=== PATIENT | female | born 1990 | race Caucasian/White ===

== ENCOUNTER 2017-02-04 13:24 | Emergency (ER) | payer MEDICAID ==
[~2017-02-04] VITALS: Ht 165.1 cm; Wt 90.0 kg
[~2017-02-04 13:24] MED LIST: CLIN150 PO
[2017-02-04 13:25] VITALS: BP 133/73; PULSE 17; PULSE 79; RESP 15; TEMP 98.1; O2SAT 98
[2017-02-04 13:50] VITALS: BP 128/68; PULSE 76; RESP 16; O2SAT 100
--- NOTE | 2017-02-04 14:07 | PD ---
HPI Chief Complaint: Abdominal Pain Time Seen by Provider: 13:41 Travel History International Travel<30 days: No Contact w/Intl Traveler<30days: No Traveled to known affect area: No History of Present Illness HPI The patient was seen and examined in the presence of the nurse. This patient reports that she is approximate 5-6 weeks' . She developed pelvic cramping 3 days ago. No bleeding or fluid discharge. No fever. Symptoms severity is mild to moderate. No alleviating factors. 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, OPEN HEART SURGERY ) Diminished Hearing: No Hiatal Hernia: No Immunizations Current: Yes Renal Failure: No Influenza Vaccination: No ?: : 3 Para: 3 Miscarriage: 0 : 0 Past Surgical History Cardiac Surgery: Yes (arotic valve at age 7 months) Other Surgery: Yes ("OPEN HEART AT 8 MOS AND STENT SURGERY AT 14 YRS") Social History Alcohol Use: No Tobacco Use: No Substance Use: No Allergies-Medications (Allergen,Severity, Reaction): Coded Allergies: Amoxicillin (Verified Allergy, Severe, RASH, 02/04/17) Penicillin (Verified Allergy, Severe, "THROAT CLOSES", 02/04/17) Shellfish (Verified Allergy, Severe, Anaphylaxis, 02/04/17) Tramadol (Verified Allergy, Severe, RASH, 02/04/17) Reported Meds & Prescriptions Reported Meds & Active Scripts Active No Active Prescriptions or Reported Medications Review of Systems General / Constitutional: No: Fever Eyes: No: Visual changes HENT: No: Headaches Cardiovascular: No: Chest Pain or Discomfort Respiratory: No: Shortness of Breath Gastrointestinal: No: Abdominal Pain Genitourinary: Positive: Pelvic Pain, No: Dysuria Musculoskeletal: No: Pain Skin: No Rash Neurologic: No: Weakness Psychiatric: No: Depression Endocrine: No: Polydipsia Hematologic/Lymphatic: No: Easy Bruising Physical Exam Narrative GENERAL: Well-nourished, well-developed patient in no apparent distress. SKIN: Warm and dry. HEAD: Atraumatic. Normocephalic. EYES: Pupils equal and round. No scleral icterus. No injection or drainage. ENT: No nasal bleeding or discharge. Mucous membranes pink and moist. NECK: Trachea midline. No JVD. CARDIOVASCULAR: Regular rate and rhythm. No murmur appreciated. RESPIRATORY: No accessory muscle use. Clear to auscultation. Breath sounds equal bilaterally. GASTROINTESTINAL: Abdomen soft, non-tender, nondistended. Hepatic and splenic margins not palpable. MUSCULOSKELETAL: No obvious deformities. No clubbing. No cyanosis. No edema. NEUROLOGICAL: Awake and alert. No obvious cranial nerve deficits. Motor grossly within normal limits. Normal speech. PSYCHIATRIC: Appropriate mood and affect; insight and judgment normal. Data Data Last Documented VS Vital Signs Date Time Temp Pulse Resp B/P Pulse Ox O2 Delivery O2 Flow Rate FiO2 02/04/17 13:50 76 16 128/68 100 Room Air 02/04/17 13:25 98.1 Orders Beta Hcg (Quant/Titer) (02/04/17 14:00) Urinalysis - C+S If Indicated (02/04/17 14:00) Labs Laboratory Tests Test 02/04/17 14:05 Urine Color YELLOW Urine Turbidity CLEAR Urine pH 7.5 Urine Specific [place] 1.011 Urine Protein NEG mg/dL Urine Glucose (UA) NEG mg/dL Urine Ketones NEG mg/dL Urine Occult Blood NEG Urine Nitrite NEG Urine Bilirubin NEG Urine Urobilinogen LESS THAN 2.0 MG/DL Urine Leukocyte Esterase NEG Urine RBC LESS THAN 1 /hpf Urine WBC LESS THAN 1 /hpf Urine Squamous Epithelial 4 /hpf Cells Microscopic Urinalysis Comment CULT NOT INDICATED Human Chorionic Gonadotropin, 4732 MIU/ML Quant MDM Medical Decision Making Medical Screen Exam Complete: Yes Emergency Medical Condition: Yes Medical Record Reviewed: Yes Differential Diagnosis Ectopic , miscarriage, threatened Narrative Course I have reviewed the patient's electronic medical record. Patient has had vaginal delivery here before. 3 prior pregnancies, none with any major problem Urinalysis is negative Beta hCG is 4700 I did a bedside transabdominal ultrasound. I'm not able to definitively identify an intrauterine fetus. Therefore I ordered a formal radiology transvaginal ultrasound to rule out ectopic I explained the importance of this to the patient On reevaluation the patient she is frustrated with the delay and is going to sign out AGAINST MEDICAL ADVICE. I advised her to wait and get the ultrasound but she is declining. I advised her to return if she changes her mind or worsens. Diagnosis Primary Impression: Pelvic pain affecting in first trimester, antepartum Scripts No Active Prescriptions or Reported Meds Disposition: 07 AGAINST MEDICAL ADVICE Gerry Alcaraz MD Feb 04, 2017 14:07
[2017-02-04 14:20] LABS: BLOOD, URINE NEG (NEG); COMMENT (UR) CULT NOT INDICATED; CULTURE IF INDICATED CULT NOT INDICATED; GLUCOSE,URINE NEG (NEG); KETONE, URINE NEG (NEG); NITRITE,URINE NEG (NEG); PH, URINE 7.5 (5.0-8.5); SQUAMOUS EPITHELIAL CELL URINE 4 /hpf (0-5); URINE COLOR YELLOW (YELLW/STRAW)
[2017-02-04 14:54] LABS: BETA HCG QUANT 4732 MIU/ML (0-5)
== END 2017-02-04 17:30 | disposition left against medical advice (07) ==
LOC: NEPE 13:24
DX: O26.891 Other specified pregnancy related conditions, first trimester (principal); R10.2 Pelvic and perineal pain; Z3A.01 Less than 8 weeks gestation of pregnancy
CPT/HCPCS: 81001; 84702; 99284

== ENCOUNTER 2017-06-12 19:02 | Emergency (ER) | payer MEDICAID ==
--- NOTE | 2017-06-12 19:54 | PD ---
HPI Chief Complaint Discharge and cramping Date Seen: Jun 12, 2017 Time Seen: 19:50 Travel History International Travel<30 Days: No Contact w/Intl Traveler<30Days: No Known Affected Area: No History of Present Illness HPI 27-year-old who is at 24 weeks gestation comes in because of some white discharge that she noticed today and lower abdominal cramping. Patient states that she's had abdominal pain off and on for the past 2-3 months located in the midsection of the belly but this seems to be more crampy pain in the lower abdomen it occurs off and on every 20-30 minutes, with occasional back pain. Patient had intercourse last night and had some white discharge and mucus past this morning. Patient has normal movement and denies vaginal bleeding denies rupture membranes. Patient sees Luz Coleman for her care and denies any complications. She's had 3 prior vaginal deliveries all of which occurred at term Para: 3 : 4 History Past Medical History Narrative Medical Aortic stenosis that did not require surgery but patient had a dilation of her aortic valve when she was 13 years old. Continued cardiology follow-up with benign, no issues with prior deliveries. Obstetric History Obstetric History Spontaneous vaginal delivery 3 Family History Family History: Negative Social History Alcohol Use: No Tobacco Use: No Substance Abuse: No Allergies-Medications (Allergen,Severity, Reaction): Coded Allergies: Amoxicillin (Verified Allergy, Severe, RASH, 02/04/17) Penicillin (Verified Allergy, Severe, "THROAT CLOSES", 02/04/17) Shellfish (Verified Allergy, Severe, Anaphylaxis, 02/04/17) Tramadol (Verified Allergy, Severe, RASH, 02/04/17) Home Meds No Active Prescriptions or Reported Meds Review of Systems Except as stated in HPI: all other systems reviewed are Neg Physical Exam Narrative GENERAL: Well-nourished, well-developed patient. SKIN: Warm and dry. HEAD: Normocephalic and atraumatic. EYES: No scleral icterus. No injection or drainage. ENT: No nasal drainage noted. Mucous membranes pink. Airway patent. NECK: Supple, trachea midline. No JVD. CARDIOVASCULAR: Regular rate and rhythm without murmurs, gallops, or rubs. RESPIRATORY: Breath sounds equal bilaterally. No accessory muscle use. ABDOMEN/GI: Abdomen soft, non-tender, bowel sounds present, no rebound, no guarding Gravid to [-24] weeks size Fundal Height: [-] GENITOURINARY: External Genitalia: intact and normal in appearance BUS glands: [Normal-] Cervix: [-] Sterile speculum examination was performed no discharge is seen and cervix is closed. Dilatation: [-] Effacement: [-] Station: [-] Presentation: [-] Membranes: [intact or ruptured] Uterine Contractions: [None seen-] FHT's: Category: [-1] Baseline: [140-] Reactive: [-Moderate] Variability: [-Moderate] Decels: [-Absent] EXTREMITIES: No cyanosis or edema. BACK: Nontender without obvious deformity. No CVA tenderness. NEUROLOGICAL: Awake and alert. Motor and sensory grossly within normal limits. Five out of 5 muscle strength in all muscle groups. Normal speech. Data Data Vital Signs Reviewed: Yes Orders Vital Signs (Adult) .ON ADMISSION (06/12/17 19:49) ^ Labor Status (06/12/17 19:49) Urinalysis - C+S If Indicated (06/12/17 19:49) Diet Liquid (06/13/17 Breakfast) Labs Laboratory Tests Test 06/12/17 19:45 Urine Color LIGHT-YELLOW Urine Turbidity CLEAR Urine pH 6.0 Urine Specific [place] 1.002 Urine Protein NEG mg/dL Urine Glucose (UA) NEG mg/dL Urine Ketones NEG mg/dL Urine Occult Blood NEG Urine Nitrite NEG Urine Bilirubin NEG Urine Urobilinogen LESS THAN 2.0 MG/DL Urine Leukocyte Esterase MOD Urine RBC 4 /hpf Urine WBC 2 /hpf Urine Squamous Epithelial 4 /hpf Cells Urine Amorphous Sediment RARE Urine Bacteria RARE /hpf Microscopic Urinalysis Comment CULT NOT INDICATED MDM Medical Record Reviewed: Yes Plan 27yo G43 at 24 weeks with vaginal discharge No signs of labor and no contractions noted Precautions given to patient to return to hospital for worsening symptoms as FFN could not be performed Diagnosis Diagnosis: Primary Impression: 24 weeks gestation of Additional Impression: Vaginal discharge during in second trimester Disposition: DISCHARGE HOME Scripts No Active Prescriptions or Reported Meds Italia Boateng MD Jun 12, 2017 19:54
[2017-06-12 20:43] LABS: BACTERIA, URINE RARE /hpf; BLOOD, URINE NEG (NEG); COMMENT (UR) CULT NOT INDICATED; CULTURE IF INDICATED CULT NOT INDICATED; GLUCOSE,URINE NEG (NEG); KETONE, URINE NEG (NEG); NITRITE,URINE NEG (NEG); SQUAMOUS EPITHELIAL CELL URINE 4 /hpf (0-5); URINE COLOR LIGHT-YELLOW (YELLW/STRAW)
== END 2017-06-12 21:07 | disposition home or self-care (01) ==
LOC: HOBED 19:02
DX: O26.899 Other specified pregnancy related conditions, unspecified trimester (principal); N89.8 Other specified noninflammatory disorders of vagina; Z3A.24 24 weeks gestation of pregnancy; Z88.0 Allergy status to penicillin; Z88.5 Allergy status to narcotic agent
CPT/HCPCS: 81001; 99283

== ENCOUNTER 2017-08-10 12:05 | Emergency (ER) | payer MEDICAID ==
--- NOTE | 2017-08-10 14:19 | PD ---
HPI Chief Complaint vomiting and lower abd pressure Travel History International Travel<30 Days: No Contact w/Intl Traveler<30Days: No History of Present Illness HPI 27 yo at 32/3 weeks gestation presented to OB triage with complaints of vomiting x2, last vomit episode this morning contained blood streaks and nausea. Pt also complained of Left lower abd pain radiating to back. Denies vaginal bleeding and contractions. Endorse LOF yesterday after vomiting, LOF has not continued. Pt also endorsed movement. Pt stated she was able to tolerate po (yesterday after 1st vomiting episode ate 2 burritos and ate donut this morning after 2nd vomiting episode), currently not nauseous. 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, no heart issues since then, not on any medications Family History Narrative Family History -grandfather with congenital heart condition Social History Alcohol Use: No Tobacco Use: No Substance Abuse: No Allergies-Medications (Allergen,Severity, Reaction): Coded Allergies: amoxicillin (Unverified Allergy, Severe, RASH, 07/03/17) penicillin G (Unverified Allergy, Severe, "THROAT CLOSES", 07/03/17) shellfish derived (Unverified Allergy, Severe, Anaphylaxis, 07/03/17) tramadol (Unverified Allergy, Severe, RASH, 07/03/17) Home Meds No Active Prescriptions or Reported Meds Review of Systems Except as stated in HPI: all other systems reviewed are Neg Physical Exam Narrative GENERAL: Well-nourished, well-developed patient. SKIN: Warm and dry. HEAD: Normocephalic and atraumatic. EYES: No scleral icterus. No injection or drainage. ENT: No nasal drainage noted. Mucous membranes pink. Airway patent. NECK: Supple, trachea midline. No JVD. CARDIOVASCULAR: Regular rate and rhythm without murmurs, gallops, or rubs. RESPIRATORY: Breath sounds equal bilaterally. No accessory muscle use. BREASTS: Bilateral exam showed no masses , no retractions, no nipple discharge. ABDOMEN/GI: Abdomen soft, non-tender, bowel sounds present, no rebound, no guarding Gravid to 32/3 weeks size GENITOURINARY: External Genitalia: intact and normal in appearance Cervix: posterior Dilatation: Finger tip Effacement: 10% Station: -2 Membranes:intact Uterine Contractions: none FHT's: Category: 1 Baseline: 150 Reactive: positive Variability: moderate Decels: none EXTREMITIES: No cyanosis or edema. BACK: Nontender without obvious deformity. No CVA tenderness. NEUROLOGICAL: Awake and alert. Motor and sensory grossly within normal limits. Five out of 5 muscle strength in all muscle groups. Normal speech. Data Data Vital Signs Reviewed: Yes [facility] Medical Record Reviewed: Yes Plan 27 yo at 32/3 weeks gestation presented to OB triage with complaints of vomiting x2 and pressure. 1. IUP at 32/3 - Continue routine OB care -encourage oral hydration -amnisure negative -Cervix finger tip on vaginal exam, not in premature labor -FHT, cat 1 -NST, reassuring 2. N/V - Pt stated nausea resolved, no vomiting since this -Vital signs WNL - trace ketones on urine -Anticipate discharge home if pt able to complete po challenge -virginie Bearden Diagnosis Diagnosis: Primary Impression: 32 weeks gestation of Additional Impression: Nausea and vomiting during Disposition: 01 DISCHARGE HOME Condition: Stable Scripts No Active Prescriptions or Reported Meds Patient Instructions: General Instructions, Labor (ED), Nausea and Vomiting in (ED) Raciel Reich MD R1 Aug 10, 2017 14:19
== END 2017-08-10 14:53 | disposition home or self-care (01) ==
LOC: HOBED 12:05
DX: O26.893 Other specified pregnancy related conditions, third trimester (principal); R11.2 Nausea with vomiting, unspecified; Z3A.32 32 weeks gestation of pregnancy
CPT/HCPCS: 59025; 84112

== ENCOUNTER 2017-09-09 10:22 | Emergency (ER) | payer MEDICAID ==
--- NOTE | 2017-09-09 12:09 | PD ---
HPI Chief Complaint Swelling, lower abdominal, hip and back pain Date Seen: Sep 09, 2017 Time Seen: 12:03 Travel History International Travel<30 Days: No Contact w/Intl Traveler<30Days: No Known Affected Area: No History of Present Illness HPI 27-year-old 4 para 3 at 36+ weeks gestation who comes today with multiple vague complaints. These include swelling of her feet, constant hip and lower abdominal pain for several weeks. She denies bleeding, leakage of fluid but does report decreased movement. History Past Medical History Medical History: Denies Significant Hx Obstetric History Obstetric History 3 prior vaginal deliveries She receives care at [facility] and denies complications with this . Past Surgical History Narrative Surgical Cardiac surgery as an infant Family History Family History: Negative Social History Alcohol Use: No Tobacco Use: No Substance Abuse: No Allergies-Medications (Allergen,Severity, Reaction): Coded Allergies: amoxicillin (Unverified Allergy, Severe, RASH, 07/03/17) penicillin G (Unverified Allergy, Severe, "THROAT CLOSES", 07/03/17) shellfish derived (Unverified Allergy, Severe, Anaphylaxis, 07/03/17) tramadol (Unverified Allergy, Severe, RASH, 07/03/17) Home Meds No Active Prescriptions or Reported Meds Review of Systems Except as stated in HPI: all other systems reviewed are Neg Physical Exam Narrative GENERAL: Well-nourished, well-developed patient. SKIN: Warm and dry. HEAD: Normocephalic and atraumatic. EYES: No scleral icterus. No injection or drainage. ENT: No nasal drainage noted. Mucous membranes pink. Airway patent. NECK: Supple, trachea midline. No JVD. CARDIOVASCULAR: Regular rate and rhythm without murmurs, gallops, or rubs. RESPIRATORY: Breath sounds equal bilaterally. No accessory muscle use. BREASTS: Bilateral exam showed no masses , no retractions, no nipple discharge. ABDOMEN/GI: Abdomen soft, non-tender, bowel sounds present, no rebound, no guarding Gravid to [-] weeks size Fundal Height: [-] GENITOURINARY: External Genitalia: intact and normal in appearance BUS glands: [-] Cervix: [-] Dilatation: [-1] Effacement: [50-] Station: [--3] Presentation: [Vertex-] Membranes: [intact Uterine Contractions: [-No] FHT's: Category: [-1] Baseline: [-] Reactive: [Yes-] Variability: [-] Decels: [-] EXTREMITIES: No cyanosis or edema. BACK: Nontender without obvious deformity. No CVA tenderness. NEUROLOGICAL: Awake and alert. Motor and sensory grossly within normal limits. Five out of 5 muscle strength in all muscle groups. Normal speech. MDM Medical Record Reviewed: Yes Diagnosis Diagnosis: Primary Impression: 36 weeks gestation of Additional Impression: Labor, false Disposition: 01 DISCHARGE HOME Condition: Good Scripts No Active Prescriptions or Reported Meds Franklin Patino MD Sep 09, 2017 12:09
== END 2017-09-09 12:17 | disposition home or self-care (01) ==
LOC: HOBED 10:22
DX: O47.03 False labor before 37 completed weeks of gestation, third trimester (principal); M79.89 Other specified soft tissue disorders; M25.559 Pain in unspecified hip; R10.30 Lower abdominal pain, unspecified; Z3A.36 36 weeks gestation of pregnancy; Z88.0 Allergy status to penicillin; Z88.5 Allergy status to narcotic agent
CPT/HCPCS: 59025

== ENCOUNTER 2017-09-25 19:34 | Emergency (ER) | payer MEDICAID ==
--- NOTE | 2017-09-25 20:21 | PD ---
HPI Chief Complaint Contractions Date Seen: Sep 25, 2017 Time Seen: 20:18 Travel History International Travel<30 Days: No Contact w/Intl Traveler<30Days: No Known Affected Area: No History of Present Illness HPI 27-year-old who is at 39 weeks comes in today complaining of contractions which she states has been going on all day. Patient was seen this morning at Luz Coleman's office with an examination which she states was 3-4 cm. She is group B strep negative and denies any antepartum complications. Patient has had 3 prior spontaneous vaginal deliveries the largest of which was 9-1/2 pounds. Patient denies vaginal bleeding and she's having good movement. Patient states the contractions are 5-10 minutes apart Weeks Gestation: 39 Para: 3 : 4 History Past Medical History Narrative Medical Abnormal aortic valve requiring surgery and valvular replacement when she was a young child Obstetric History Obstetric History Spontaneous vaginal delivery 3 no history of complications Past Surgical History Narrative Surgical See previous history above Family History Family History: Negative Social History Alcohol Use: No Tobacco Use: No Substance Abuse: No Allergies-Medications (Allergen,Severity, Reaction): Coded Allergies: amoxicillin (Unverified Allergy, Severe, RASH, 07/03/17) penicillin G (Unverified Allergy, Severe, "THROAT CLOSES", 07/03/17) shellfish derived (Unverified Allergy, Severe, Anaphylaxis, 07/03/17) tramadol (Unverified Allergy, Severe, RASH, 07/03/17) Home Meds No Active Prescriptions or Reported Meds Review of Systems Except as stated in HPI: all other systems reviewed are Neg Physical Exam Narrative GENERAL: Well-nourished, well-developed patient. SKIN: Warm and dry. HEAD: Normocephalic and atraumatic. EYES: No scleral icterus. No injection or drainage. ENT: No nasal drainage noted. Mucous membranes pink. Airway patent. NECK: Supple, trachea midline. No JVD. CARDIOVASCULAR: Regular rate and rhythm without murmurs, gallops, or rubs. RESPIRATORY: Breath sounds equal bilaterally. No accessory muscle use. ABDOMEN/GI: Abdomen soft, non-tender, bowel sounds present, no rebound, no guarding Gravid to [-39] weeks size Fundal Height: [-] GENITOURINARY: External Genitalia: intact and normal in appearance BUS glands: [Normal-] Cervix: [-Posterior] Dilatation: [3 cm-] Effacement: [-50] Station: [-High] Presentation: [-Vertex and ballotable] Membranes: [intact ] Uterine Contractions: [-Irregular every 10 minutes] FHT's: Category: [1-] Baseline: [150-] Reactive: [-Moderate] Variability: [-Moderate] Decels: [Absent-] EXTREMITIES: No cyanosis or edema. BACK: Nontender without obvious deformity. No CVA tenderness. NEUROLOGICAL: Awake and alert. Motor and sensory grossly within normal limits. Five out of 5 muscle strength in all muscle groups. Normal speech. Data Data Vital Signs Reviewed: Yes Group B Strep: Negative MDM Medical Record Reviewed: Yes Plan 27yo at [id number] here with irregular contractions. No cervical change from exam today and no change after observation here. Discussed labor precautions to return for worsening contractions, vaginal bleeding, or rupture of membranes. Diagnosis Diagnosis: Primary Impression: 39 weeks gestation of Additional Impression: False labor after 37 weeks of gestation without delivery Disposition: 01 DISCHARGE HOME Scripts No Active Prescriptions or Reported Meds Italia Boateng MD Sep 25, 2017 20:21
== END 2017-09-25 21:55 | disposition home or self-care (01) ==
LOC: HOBED 19:34
DX: O47.1 False labor at or after 37 completed weeks of gestation (principal); Z3A.39 39 weeks gestation of pregnancy; Z88.0 Allergy status to penicillin; Z88.5 Allergy status to narcotic agent
CPT/HCPCS: 59025

== ENCOUNTER 2017-09-28 19:03 | Emergency (ER) | payer MEDICAID ==
[~2017-09-28] VITALS: Ht 165.1 cm; Wt 94.8 kg
--- NOTE | 2017-09-28 20:17 | PD ---
HPI Chief Complaint Lower abdominal cramping Date Seen: Sep 28, 2017 Time Seen: 20:13 Travel History International Travel<30 Days: No Contact w/Intl Traveler<30Days: No Known Affected Area: No History of Present Illness HPI 27-year-old 4 para 3 at 39+ weeks gestation who presents with lower abdominal discomfort and possible contractions. She denies bleeding but thought she might be leaking some fluid. She was seen 48 hours ago and was found to be 3 cm dilated. History Past Medical History Narrative Medical History of aortic valve replacement as an Obstetric History Obstetric History 3 vaginal deliveries Uncomplicated course with this Past Surgical History Narrative Surgical Aortic valve replacement Family History Family History: Negative Social History Alcohol Use: No Tobacco Use: No Substance Abuse: No Allergies-Medications (Allergen,Severity, Reaction): Coded Allergies: amoxicillin (Unverified Allergy, Severe, RASH, 09/28/17) penicillin G (Unverified Allergy, Severe, "THROAT CLOSES", 09/28/17) shellfish derived (Unverified Allergy, Severe, Anaphylaxis, 09/28/17) tramadol (Unverified Allergy, Severe, RASH, 09/28/17) Home Meds No Active Prescriptions or Reported Meds Review of Systems Except as stated in HPI: all other systems reviewed are Neg Physical Exam Narrative GENERAL: Well-nourished, well-developed patient. SKIN: Warm and dry. HEAD: Normocephalic and atraumatic. EYES: No scleral icterus. No injection or drainage. ENT: No nasal drainage noted. Mucous membranes pink. Airway patent. NECK: Supple, trachea midline. No JVD. CARDIOVASCULAR: Regular rate and rhythm without murmurs, gallops, or rubs. RESPIRATORY: Breath sounds equal bilaterally. No accessory muscle use. BREASTS: Bilateral exam showed no masses , no retractions, no nipple discharge. ABDOMEN/GI: Abdomen soft, non-tender, bowel sounds present, no rebound, no guarding Gravid to [-] weeks size Fundal Height: [-] GENITOURINARY: External Genitalia: intact and normal in appearance BUS glands: [-] Cervix: [-] Dilatation: [3-] Effacement: [-50] Station: [--3] Presentation: [Vertex-] Membranes: [intact ] Uterine Contractions: [-Mild irregular] FHT's: Category: [1-] Baseline: [-] Reactive: [-Yes] Variability: [-] Decels: [-] EXTREMITIES: No cyanosis or edema. BACK: Nontender without obvious deformity. No CVA tenderness. NEUROLOGICAL: Awake and alert. Motor and sensory grossly within normal limits. Five out of 5 muscle strength in all muscle groups. Normal speech. Data Data Vital Signs Reviewed: Yes Group B Strep: Negative MDM Medical Record Reviewed: Yes Narrative Course / MDM Assessment: 39 week multipara not in labor Plan: Labor precautions were reviewed with the patient. She'll follow up as needed. Diagnosis Diagnosis: Primary Impression: Labor, false Additional Impression: 39 weeks gestation of Disposition: 01 DISCHARGE HOME Condition: Good Scripts No Active Prescriptions or Reported Meds Franklin Patino MD Sep 28, 2017 20:17
== END 2017-09-28 20:25 | disposition home or self-care (01) ==
LOC: HOBED 19:03
DX: O47.1 False labor at or after 37 completed weeks of gestation (principal); Z3A.39 39 weeks gestation of pregnancy; Z88.0 Allergy status to penicillin; Z88.5 Allergy status to narcotic agent
CPT/HCPCS: 84112; 99284

== ENCOUNTER 2017-09-30 13:54 | Inpatient (IN) | payer MEDICAID ==
[~2017-09-30] VITALS: Ht 165.1 cm; Wt 95.0 kg
[2017-09-30] VITALS (61 sets, daily range): BP systolic 94–147; BP diastolic 45–76; PULSE 56–131; RESP 16–18; TEMP 98.2–98.9
[2017-09-30] MEDS ORDERED: LACTATED RINGER'S 1000 ML INJ 1,000 ML IV PRN (14:09)
[2017-09-30] MEDS ORDERED: CITRIC ACID-SODIUM CITRATE LIQ 30 ML UDC PO SCH (14:15)
[2017-09-30] MEDS ORDERED: LIDOCAINE HCL 1% 50 ML VIAL INFIL PRN (14:15)
[2017-09-30] MEDS ORDERED: LIDOCAINE HCL 1% 50 ML VIAL I-DERMAL PRN (14:15)
[2017-09-30] MEDS ORDERED: MINERAL OIL 10 ML VIAL TOPICAL PRN (14:15)
[2017-09-30] MEDS ORDERED: OXYTOCIN 30 UNITS-500ML PREMIX 500 ML IV ONE (14:15)
[2017-09-30] MEDS ORDERED: SODIUM CHLORID 0.9% 500 ML INJ 500 ML IV PRN (14:15)
--- NOTE | 2017-09-30 14:19 | HHI.HP ---
History & Physical H&P HPI Chief Complaint Contractions Date Seen: Sep 30, 2017 Time Seen: 14:15 Travel History International Travel<30 Days: No Contact w/Intl Traveler<30Days: No Known Affected Area: No History of Present Illness HPI 27-year-old 4 para 3 at 39-5/7 weeks' gestation who presents with increased contraction activity. She denies leakage of fluid or bleeding. History (Limited) History Past Medical History Narrative Medical Anxiety History of aortic valve repair/replacement Obstetric History Obstetric History 3 prior uncomplicated vaginal deliveries care with Luz Jared which has been uncomplicated. Past Surgical History Narrative Surgical Porcine aortic valve replacement at 7 months of age Valvuloplasty Family History Family History: Negative Social History Alcohol Use: No Tobacco Use: No Substance Abuse: No Allergies-Medications Allergies-Medications (Allergen,Severity, Reaction): Coded Allergies: amoxicillin (Unverified Allergy, Severe, RASH, 09/28/17) penicillin G (Unverified Allergy, Severe, "THROAT CLOSES", 09/28/17) shellfish derived (Unverified Allergy, Severe, Anaphylaxis, 09/28/17) tramadol (Unverified Allergy, Severe, RASH, 09/28/17) Home Meds No Active Prescriptions or Reported Meds ROS Review of Systems Except as stated in HPI: all other systems reviewed are Neg Physical Exam Physical Exam Narrative GENERAL: Well-nourished, well-developed patient. SKIN: Warm and dry. HEAD: Normocephalic and atraumatic. EYES: No scleral icterus. No injection or drainage. ENT: No nasal drainage noted. Mucous membranes pink. Airway patent. NECK: Supple, trachea midline. No JVD. CARDIOVASCULAR: Regular rate and rhythm without murmurs, gallops, or rubs. RESPIRATORY: Breath sounds equal bilaterally. No accessory muscle use. ABDOMEN/GI: Abdomen soft, non-tender, bowel sounds present, no rebound, no guarding Gravid to [-] weeks size Fundal Height: [-] GENITOURINARY: External Genitalia: intact and normal in appearance BUS glands: [Negative-] Cervix: [-] Dilatation: [-4-5] Effacement: [100-] Station: [-2-] Presentation: [Vertex-] Membranes: [intact] Uterine Contractions: [Irregular-] FHT's: Category: [1-] Baseline: [-] Reactive: [-] Variability: [-] Decels: [-] EXTREMITIES: No cyanosis or edema. BACK: Nontender without obvious deformity. No CVA tenderness. NEUROLOGICAL: Awake and alert. Motor and sensory grossly within normal limits. Five out of 5 muscle strength in all muscle groups. Normal speech. Data Data Data Vital Signs Reviewed: Yes Orders Orders Admit To Inpatient (09/30/17 ) Code Status (09/30/17 14:09) Vital Signs (Adult) .Per protocol (09/30/17 14:09) Heart (09/30/17 14:09) Amnioinfusion (09/30/17 14:09) Urinary Catheter Management .ONCE (09/30/17 14:09) Lactated Ringer's 1000 Ml Inj (Lr 1000 M (09/30/17 14:09) Lactated Ringer's 1000 Ml Inj (Lr 1000 M (09/30/17 14:09) Sodium Chlorid 0.9% 500 Ml Inj (Ns 500 M (09/30/17 14:15) Sodium Chlor 0.9% 1000 Ml Inj (Ns 1000 M (09/30/17 14:29) Lidocaine 1% Inj (50 Ml) (Xylocaine 1% I (09/30/17 14:15) Citric Acid-Sodium Citrate Liq (Bicitra (09/30/17 14:15) Fentanyl Inj (Fentanyl Inj) (09/30/17 14:15) Fentanyl Inj (Fentanyl Inj) (09/30/17 14:15) Complete Blood Count With Diff (09/30/17 14:09) Hold Clot (09/30/17 14:09) Abo/Rh Blood Type (09/30/17 14:09) Drug Screen, Random Urine (09/30/17 14:09) Resp Oxygen Non Rebreathe Mask (09/30/17 ) ^ Epidural / Intrathecal Infus (09/30/17 14:09) Oxytocin 30 Units-500ml Premix (Pitocin (09/30/17 14:15) Lidocaine 1% Inj (50 Ml) (Xylocaine 1% I (09/30/17 14:15) Light Mineral Oil (Muri-Lube Oil) (09/30/17 14:15) Inpatient Certification (09/30/17 ) Group B Strep: Negative MDM MDM Medical Record Reviewed: Yes Narrative Course / MDM Assessment: 39+ week multiparous female in early active labor, history of anemia this Plan: Admit for labor management. Scripts No Active Prescriptions or Reported Meds Franklin Patino MD Sep 30, 2017 14:19 Franklin Patino MD Sep 30, 2017 14:19
[2017-09-30] MEDS ORDERED: SODIUM CHLOR 0.9% 1000 ML INJ 1,000 ML IV PRN (14:29)
[2017-09-30] MEDS: LACTATED RINGER'S 1000 ML INJ 1,000 ML IV SCH ×2 (14:45→15:35)
[2017-09-30 14:58] LABS: AUTOMATED NEUTROPHIL # 4.5 TH/MM3 (1.8-7.7); BASOPHIL # 0.1 TH/MM3 (0-0.2); BASOPHIL % 1.1 % (0.0-2.0); EOSINOPHIL % 0.4 % (0.0-4.0); HEMO FLAGS DIFF FINAL; LYMPH % 31.1 % (9.0-44.0); LYMPHOCYTE # 2.3 TH/MM3 (1.0-4.8); MEAN CELL VOLUME 70.4 FL (80.0-100.0); MEAN CORPUSCULAR HEMOGLOBIN 22.7 PG (27.0-34.0); MEAN CORPUSCULAR HGB CONC 32.2 % (32.0-36.0); MONO % 5.7 % (0.0-8.0); NEUT % 61.7 % (16.0-70.0); PLATELET COUNT 152 TH/MM3 (150-450); RED BLOOD COUNT 4.27 MIL/MM3 (4.00-5.30); RED CELL DISTRIBUTION WIDTH 17.9 % (11.6-17.2); WHITE BLOOD COUNT 7.3 TH/MM3 (4.0-11.0)
[2017-09-30] MEDS ORDERED: ePHEDrine/NS 25 MG/5 ML SYR ONE (15:01)
[2017-09-30] MEDS ORDERED: fentaNYL 2MCG-BUPIV 0.125% INJ 100 ML ONE (15:01)
[2017-09-30] MEDS ORDERED: NO SYSTEM NARCOTICS PRN (15:45)
[2017-09-30] MEDS ORDERED: fentaNYL 2MCG-BUPIV 0.125% 100 ML EPIDURAL SCH (15:45)
[2017-09-30] MEDS ORDERED: ePHEDrine/NS 25 MG/5 ML SYR IV PUSH PRN (15:45)
[2017-09-30] MEDS ORDERED: DO NOT ADMINISTER ANTICOAGULANTS PRN (15:45)
--- NOTE | 2017-09-30 17:50 | PD.OB.DELI ---
Weeks gestation: 39 Gest age assessed date: Sep 30, 2017 Gest age assessed time: 17:46 Pt started active labor?: Yes Active labor start date: Sep 30, 2017 Active labor start time: 13:50 Medical induction of labor?: No Artificial rupture of membrane: Yes Artificial ROM date: Sep 30, 2017 Artifical ROM time: 17:20 Anesthesia: Epidural Episiotomy: None Vaginal Delivery: Normal Presentation: Occiput anterior Nuchal Cord: x1 Delayed cord clamping (45 sec): Yes : Male Delivery date: Sep 30, 2017 Delivery time: 17:31 One Minute : 8 Five Minute : 9 Weight: 9 pounds Placenta: Spontaneous delivery Laceration: Vaginal laceration, 1 deg Repair: Vicryl interrupted Estimated blood loss: 200 Additional Information The patient progressed to complete dilation and pushed one time to deliver the OA vertex over an intact perineum. Nuchal cord 1 was reduced. Shoulders were delivered by maternal effort without delay. The patient was passed to maternal abdomen where delayed cord clamping was accomplished. The placenta delivered spontaneously. It was grossly normal and apparently intact. A small first- degree posterior vaginal laceration was repaired due to active bleeding. Uterine tone was accomplished with IV Pitocin solution and massage. Franklin Patino MD Sep 30, 2017 17:50
[2017-09-30] MEDS ORDERED: SODIUM CHLORIDE 0.9% FLUSH 10 ML FLUSH IV FLUSH PRN (18:00)
[2017-09-30] MEDS ORDERED: ALUMINUM/MAGNESIUM/SIMETH 30 ML CUP PO PRN (18:00)
[2017-09-30] MEDS ORDERED: ONDANSETRON ODT 4 MG TAB PO PRN (18:00)
[2017-09-30] MEDS ORDERED: oxyCODONE/ACETAMINOPHEN 5 MG/325 MG TAB PO PRN (18:00)
[2017-09-30] MEDS ORDERED: MEASLES, MUMPS, RUBELLA VACCINE 0.5 ML VIAL SQ ONE (19:00)
[2017-09-30] MEDS ORDERED: OXYTOCIN IV ONE (19:00)
[2017-09-30] MEDS ORDERED: DIPHTH/TETANUS/ACEL PERTUSSIS (BOOSTER) 0.5 ML VIAL/PFS IM ONE (19:00)
[2017-09-30] MEDS ORDERED: OXYTOCIN 30 UNITS-500ML PREMIX 500 ML IV SCH (19:00)
[2017-09-30] MEDS: SODIUM CHLORIDE 0.9% FLUSH 10 ML FLUSH IV FLUSH SCH (20:14)
[2017-09-30] MEDS ORDERED: METHYLERGONOVINE MALEATE 0.2 MG/ML VIAL ONE (20:39)
[2017-09-30] MEDS ORDERED: ZOLPIDEM TARTRATE 5 MG TAB PO PRN (21:00)
[2017-09-30] MEDS: BENZOCAINE 20% TOPICAL SPRAY 60 ML CAN TOPICAL PRN (22:01)
[2017-09-30] MEDS: WITCH HAZEL 50%/GLYCERIN 12.5% 40 PAD JAR TOPICAL PRN (22:01)
[2017-09-30] MEDS: IBUPROFEN 600 MG TAB PO PRN (22:01)
[2017-09-30] MEDS: DOCUSATE SODIUM 50 MG/SENNA 8.6 MG TAB PO PRN (22:01)
[2017-09-30] MEDS: ACETAMINOPHEN 325 MG TAB PO PRN (22:02)
[2017-10-01 07:35] VITALS: BP 105/69; PULSE 66; RESP 18; TEMP 97.6
[2017-10-01] MEDS: IBUPROFEN 600 MG TAB PO PRN ×2 (07:54→17:13)
[2017-10-01] MEDS: ACETAMINOPHEN 325 MG TAB PO PRN ×2 (07:54→17:14)
--- NOTE | 2017-10-01 08:28 | HHI.OB ---
Subjective Remarks Patient is a 27-year-old delivered at 39 weeks and 5 days. Patient is day 1 after NVD. Patient's pain is well-controlled. Patient reports eating and drinking without any nausea or vomiting. Patient reports minimal bleeding. Patient has passed gas but no bowel movements. Patient is walking without lower extremity pain or shortness of breath. Patient reports desire for contraception with outpatient tubal ligation and bottle/formula feeding. (Natanael Mansfield MD R2) Remarks Patient seen and evaluated with resident under direct supervision, agree with assessment and plan. (Franklin Patino MD) Objective Vitals/I&O Vital Signs Date Time Temp Pulse Resp B/P (MAP) Pulse Ox O2 Delivery O2 Flow Rate FiO2 09/30/17 21:16 61 147/70 (95) 09/30/17 21:05 18 09/30/17 21:01 65 127/65 (85) 09/30/17 20:30 71 102/59 (73) 09/30/17 20:18 59 95/58 (70) 09/30/17 20:16 59 94/47 (63) 09/30/17 20:10 18 09/30/17 20:01 69 110/67 (81) 09/30/17 19:55 16 09/30/17 19:45 73 109/71 (84) 09/30/17 19:40 16 09/30/17 19:31 56 98/57 (71) 09/30/17 19:25 18 09/30/17 19:16 66 118/66 (83) 09/30/17 19:10 16 09/30/17 19:10 98.3 09/30/17 19:01 71 123/75 (91) 09/30/17 18:45 62 120/60 (80) 09/30/17 18:31 67 115/58 (77) 09/30/17 18:15 60 122/57 (78) 09/30/17 18:05 18 09/30/17 18:00 131 115/65 (82) 09/30/17 17:45 72 105/54 (71) 09/30/17 17:40 79 98/58 (71) 09/30/17 17:35 98.9 09/30/17 17:35 18 09/30/17 17:30 83 09/30/17 17:25 74 09/30/17 17:20 84 09/30/17 17:15 73 09/30/17 17:10 73 09/30/17 17:05 69 09/30/17 17:00 74 102/68 (79) 09/30/17 17:00 94 09/30/17 16:55 93 09/30/17 16:50 67 09/30/17 16:45 67 09/30/17 16:40 87 09/30/17 16:35 76 09/30/17 16:31 68 100/45 (63) 09/30/17 16:30 75 09/30/17 16:29 98.2 18 09/30/17 16:25 72 09/30/17 16:20 83 09/30/17 16:15 77 09/30/17 16:10 63 09/30/17 16:05 107 09/30/17 16:00 80 09/30/17 16:00 76 115/76 (89) 09/30/17 15:55 78 09/30/17 15:50 77 09/30/17 15:45 79 102/55 (71) 09/30/17 15:45 76 09/30/17 15:40 80 09/30/17 15:40 78 105/62 (76) 09/30/17 15:35 82 113/57 (75) 09/30/17 15:35 78 09/30/17 15:35 18 09/30/17 15:30 84 107/63 (78) 09/30/17 15:30 83 09/30/17 15:27 85 106/57 (73) 09/30/17 15:26 18 09/30/17 15:25 112/58 (76) 09/30/17 15:25 84 09/30/17 15:25 81 09/30/17 15:22 78 09/30/17 15:22 122/64 (83) 09/30/17 15:20 83 09/30/17 15:17 122/71 (88) 09/30/17 15:17 82 09/30/17 15:15 89 09/30/17 14:52 77 111/63 (79) 09/30/17 14:45 98.9 18 09/30/17 14:07 80 131/67 (88) Objective Remarks GENERAL: Well-nourished, well-developed patient. CARDIOVASCULAR: Regular rate and rhythm with a 3/6 systolic murmur, but no gallops or rubs. RESPIRATORY: Breath sounds equal bilaterally. No accessory muscle use. ABDOMEN/GI: Abdomen soft, non-tender. Fundus: Firm, non-tender at umbilicus. GENITOURINARY: Light to moderate bleeding. EXTREMITIES: No cyanosis or edema, non-tender, without signs of DVT. Medications and IVs Current Medications Medications (Trade) Dose Ordered Sig/Nelda Route Start Time Stop Time Status Last Admin (Xylocaine 1% Inj (50 ml)) 0.1 ml UNSCH X1 PRN I-DERMAL 09/30/17 14:15 10/03/17 14:14 (Bicitra Liq) 30 ml SAFETY NET MAKER PO 09/30/17 14:15 10/04/17 14:14 (Xylocaine 1% Inj (50 ml)) 10 ml UNSCH X1 PRN INFIL 09/30/17 14:15 10/02/17 14:14 (Muri-Lube Oil) 10 ml UNSCH PRN TOPICAL 09/30/17 14:15 Miscellaneous Information No systemic narcotics to be given except... UNSCH PRN .XX 09/30/17 15:45 10/01/17 15:44 Miscellaneous Information DO NOT ADMINISTER ANY ANTICOAGUL... UNSCH PRN .XX 09/30/17 15:45 10/01/17 15:44 Fentanyl/ Bupivacaine HCl 100 ml @ 0 mls/hr TITRATE EPIDURAL 09/30/17 15:45 (ePHEDrine/NS 25 MG/5 ML SYR) 10 mg UNSCH PRN IV PUSH 09/30/17 15:45 10/01/17 15:44 (NS Flush) 2 ml BID IV FLUSH 09/30/17 21:00 (NS Flush) 2 ml UNSCH PRN IV FLUSH 09/30/17 18:00 (Tylenol) 650 mg Q4H PRN PO 09/30/17 18:00 10/01/17 07:54 (Motrin) 600 mg Q6H PRN PO 09/30/17 18:00 10/01/17 07:54 (Percocet 5-325 Mg) 2 tab Q4H PRN PO 09/30/17 18:00 (Americaine 20% Top Spr) 1 spray Q4H PRN TOPICAL 09/30/17 18:00 09/30/17 22:01 (Tucks Pads) 1 applic QID PRN TOPICAL 09/30/17 18:00 09/30/17 22:01 (Kierra-Colace) 2 tab Q12H PRN PO 09/30/17 18:00 09/30/17 22:01 (Ambien) 5 mg HS PRN PO 09/30/17 21:00 (Mag-Al Plus Susp Liq) 15 ml Q8H PRN PO 09/30/17 18:00 (Zofran Odt) 4 mg Q6H PRN PO 09/30/17 18:00 (Natanael Mansfield MD R2) Assessment/Plan Problem List: (1) Vaginal delivery ICD Codes: O80 - Vaginal delivery Status: Acute Assessment and Plan Patient is a 27-year-old delivered at 39 weeks and 5 days. Patient is day 1 after NVD. Patient was counseled to do 6 weeks of pelvic rest. Patient was counseled to follow up in 6 weeks. Patient requested follow-up and contraception. --AF VSS --Continue routine care --Motrin and Percocet when necessary for pain --Encourage OOB --Pelvic rest for 6 weeks will need follow-up appointment at that time. --Contraception: Patient reports desire for outpatient tubal ligation --Anticipate discharge tomorrow d/w Dr. Patino Discharge Planning Likely discharge tomorrow (Natanael Mansfield MD R2) Natanael Mansfield MD R2 Oct 01, 2017 08:28 Franklin Patino MD Oct 01, 2017 08:57
[2017-10-01] MEDS: SODIUM CHLORIDE 0.9% FLUSH 10 ML FLUSH IV FLUSH SCH (09:00)
[2017-10-01 19:34] VITALS: BP 123/69; PULSE 68; RESP 20; TEMP 98.3
[2017-10-01] MEDS: BENZOCAINE 20% TOPICAL SPRAY 60 ML CAN TOPICAL PRN (20:51)
[2017-10-01] MEDS: WITCH HAZEL 50%/GLYCERIN 12.5% 40 PAD JAR TOPICAL PRN (20:51)
[2017-10-02] MEDS: DOCUSATE SODIUM 50 MG/SENNA 8.6 MG TAB PO PRN (00:27)
[2017-10-02] MEDS: ACETAMINOPHEN 325 MG TAB PO PRN ×2 (00:27→10:00)
[2017-10-02] MEDS: IBUPROFEN 600 MG TAB PO PRN ×2 (00:27→10:00)
--- NOTE | 2017-10-02 08:50 | HHI.OB ---
Subjective Remarks Patient is a 27-year-old delivered at 39 weeks and 5 days. Patient is day 2 after NVD. Patient's pain is well-controlled. Patient reports eating and drinking without any nausea or vomiting. Patient reports minimal bleeding. Patient has passed gas and bowel movements. Patient is walking without lower extremity pain or shortness of breath. Patient reports plans for tubal ligation as outpatient and formula feeds. Objective Vitals/I&O Vital Signs Date Time Temp Pulse Resp B/P (MAP) Pulse Ox O2 Delivery O2 Flow Rate FiO2 10/01/17 19:34 98.3 68 20 123/69 (87) Objective Remarks GENERAL: Well-nourished, well-developed patient. CARDIOVASCULAR: Regular rate and rhythm with a 3/6 systolic murmur, but no gallops or rubs. RESPIRATORY: Breath sounds equal bilaterally. No accessory muscle use. ABDOMEN/GI: Abdomen soft, non-tender. Fundus: Firm, non-tender at umbilicus. GENITOURINARY: Light to moderate bleeding. EXTREMITIES: No cyanosis or edema, non-tender, without signs of DVT. Medications and IVs Current Medications Medications (Trade) Dose Ordered Sig/Nelda Route Start Time Stop Time Status Last Admin (Xylocaine 1% Inj (50 ml)) 0.1 ml UNSCH X1 PRN I-DERMAL 09/30/17 14:15 10/03/17 14:14 (Bicitra Liq) 30 ml ESTATE ATTORNEY PO 09/30/17 14:15 10/04/17 14:14 (Xylocaine 1% Inj (50 ml)) 10 ml UNSCH X1 PRN INFIL 09/30/17 14:15 10/02/17 14:14 (Muri-Lube Oil) 10 ml UNSCH PRN TOPICAL 09/30/17 14:15 Fentanyl/ Bupivacaine HCl 100 ml @ 0 mls/hr TITRATE EPIDURAL 09/30/17 15:45 (NS Flush) 2 ml BID IV FLUSH 09/30/17 21:00 (NS Flush) 2 ml UNSCH PRN IV FLUSH 09/30/17 18:00 (Tylenol) 650 mg Q4H PRN PO 09/30/17 18:00 10/02/17 00:27 (Motrin) 600 mg Q6H PRN PO 09/30/17 18:00 10/02/17 00:27 (Percocet 5-325 Mg) 2 tab Q4H PRN PO 09/30/17 18:00 (Americaine 20% Top Spr) 1 spray Q4H PRN TOPICAL 09/30/17 18:00 10/01/17 20:51 (Tucks Pads) 1 applic QID PRN TOPICAL 09/30/17 18:00 10/01/17 20:51 (Kierra-Colace) 2 tab Q12H PRN PO 09/30/17 18:00 10/02/17 00:27 (Ambien) 5 mg HS PRN PO 09/30/17 21:00 (Mag-Al Plus Susp Liq) 15 ml Q8H PRN PO 09/30/17 18:00 (Zofran Odt) 4 mg Q6H PRN PO 09/30/17 18:00 Assessment/Plan Problem List: (1) Vaginal delivery ICD Codes: O80 - Vaginal delivery Status: Acute Assessment and Plan Patient is a 27-year-old delivered at 39 weeks and 5 days. Patient is day 2 after NVD. Patient was counseled to do 6 weeks of pelvic rest. Patient was counseled to follow up in 6 weeks. Patient requested follow-up and has plans for tubal ligation as outpatient. --AF VSS --Continue routine care --Motrin and Tylenol when necessary for pain --Encourage OOB --Pelvic rest for 6 weeks will need follow-up appointment at that time. --Contraception: Patient reports desire for outpatient tubal ligation --Discharge today d/w Dr. Bearden Discharge Planning Discharge today Senthil Jonas MD R1 Oct 02, 2017 08:50
[2017-10-02] MEDS: SODIUM CHLORIDE 0.9% FLUSH 10 ML FLUSH IV FLUSH SCH (09:00)
[2017-10-02] MEDS ORDERED: IBUP-232 PO (09:23)
[2017-10-02] MEDS ORDERED: ACET325T15 PO (09:23)
--- NOTE | 2017-10-02 09:23 | HHI.DCPOC ---
Discharge Care Plan Diagnosis: (1) Vaginal delivery Report Symptoms to Your Doctor -Temperature above 100.5 degrees -Redness, of incision or excessive or foul smelling drainage -Unusual pain or calf pain -Increased vaginal bleeding -Painful or difficulty urinating -Feelings of extreme sadness or anxiety after 2 weeks Goals to Promote Your Health * To prevent worsening of your condition and complications, please follow up with your doctor within 6 weeks. * To maintain your health at the optimal level, please follow your doctor's recommendations. Directions to Meet Your Goals Take your medications as prescribed Follow your dietary instruction Follow activity as directed Ensure plenty of rest for recovery Drink fluids for hydration Keep your appointments as scheduled Take your immunizations and boosters as scheduled If your symptoms worsen call your PCP, if no PCP go to Urgent Care Center or Emergency Room Smoking is Dangerous to Your Health. Avoid second hand smoke Call the 24-hour crisis hotline for domestic abuse at Natanael Mansfield MD R2 Oct 02, 2017 09:23
== END 2017-10-02 18:26 | disposition home or self-care (01) | DRG 775 ==
LOC: HOBED 13:54 → H2EB 14:14 → H1EA 21:34
PROVIDERS: ADMIT Obstetrics & Gynecology; ATTEND Obstetrics & Gynecology
PROC: 10E0XZZ Delivery of Products of Conception, External Approach (ICD-10-PCS; principal; 2017-09-30)
PROC: 0HQ9XZZ Repair Perineum Skin, External Approach (ICD-10-PCS; 2017-09-30)
PROC: 00HU33Z Insertion of Infusion Device into Spinal Canal, Percutaneous Approach (ICD-10-PCS; 2017-09-30)
PROC: 3E0R3BZ Introduction of Anesthetic Agent into Spinal Canal, Percutaneous Approach (ICD-10-PCS; 2017-09-30)
DX: O69.81X0 Labor and delivery complicated by cord around neck, without compression, not applicable or unspecified (principal); O71.4 Obstetric high vaginal laceration alone; Z3A.39 39 weeks gestation of pregnancy; Z37.0 Single live birth; O99.344 Other mental disorders complicating childbirth; F41.9 Anxiety disorder, unspecified; Z95.3 Presence of xenogenic heart valve
CPT/HCPCS: 80307; 84112; 85025; 86900; 86901; 90715; 99285; J2210; J2590; J7120

== ENCOUNTER 2018-04-13 20:52 | Emergency (ER) | payer MEDICAID ==
[~2018-04-13] VITALS: Ht 165.1 cm; Wt 85.0 kg
[~2018-04-13 20:52] MED LIST changes: +ACET325T15 PO; -CLIN150 PO; +IBUP-232 PO
[2018-04-13 21:13] VITALS: BP 133/72; PULSE 72; RESP 18; TEMP 98.4; O2SAT 100
[2018-04-14] MEDS ORDERED: IBUP1TAB7 PO
--- NOTE | 2018-04-14 00:01 | PD ---
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 Patient states she has tried to contact the women's care in our clinic which is to place the IUD but was unsuccessful. She reports that the bleeding has improved since it was initially placed. Patient was concerned that the IUD was not in the right spot. She denies any dysuria, nausea, vomiting, abdominal pain. 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, OPEN HEART SURGERY ) Diminished Hearing: No Hiatal Hernia: No Immunizations Current: Yes Renal Failure: No Tetanus Vaccination: Unknown Influenza Vaccination: No ?: Not LMP: 03/26/5018 : 3 Para: 3 Miscarriage: 0 : 0 Past Surgical History Cardiac Surgery: Yes (arotic valve at age 7 months) Other Surgery: Yes ("OPEN HEART AT 8 MOS AND STENT SURGERY AT 14 YRS") Social History Alcohol Use: No Tobacco Use: No Substance Use: No Allergies-Medications (Allergen,Severity, Reaction): Coded Allergies: amoxicillin (Unverified Allergy, Severe, RASH, 04/13/18) penicillin G (Unverified Allergy, Severe, "THROAT CLOSES", 04/13/18) shellfish derived (Unverified Allergy, Severe, Anaphylaxis, 04/13/18) tramadol (Unverified Allergy, Severe, RASH, 04/13/18) Reported Meds & Prescriptions Reported Meds & Active Scripts Active Eq Acetaminophen (Acetaminophen) 325 Mg Tab 650 Mg PO Q4H PRN Ibuprofen 600 Mg Tab 600 Mg PO Q6H PRN Review of Systems Except as stated in HPI: all other systems reviewed are Neg General / Constitutional: No: Fever, Chills Gastrointestinal: No: Nausea, Abdominal Pain Genitourinary: Positive: Vaginal Bleeding Musculoskeletal: Positive: Pain Physical Exam Narrative GENERAL: Well-developed, well-nourished, alert female. Presenting in no acute distress. SKIN: Warm and dry. HEAD: Atraumatic. Normocephalic. EYES: Pupils equal and round. No scleral icterus. No injection or drainage. ENT: No nasal bleeding or discharge. Mucous membranes pink and moist. NECK: Trachea midline. No JVD. CARDIOVASCULAR: Regular rate and rhythm. RESPIRATORY: No accessory muscle use. Clear to auscultation. Breath sounds equal bilaterally. GASTROINTESTINAL: Abdomen soft, non-tender, nondistended. Hepatic and splenic margins not palpable. GENITOURINARY: Normal external genitalia without lesions or erythema. Vaginal vault with scant amount of blood, no drainage. Cervical os was closed without drainage. No cervical motion tenderness. Uterus nontender and nonenlarged. Bilateral adnexa nontender without masses. IUD strings visible. MUSCULOSKELETAL: Extremities without clubbing, cyanosis, or edema. No obvious deformities. NEUROLOGICAL: Awake and alert. No obvious cranial nerve deficits. Motor grossly within normal limits. Five out of 5 muscle strength in the arms and legs. Normal speech. PSYCHIATRIC: Appropriate mood and affect; insight and judgment normal. Data Data Last Documented VS Vital Signs Date Time Temp Pulse Resp B/P (MAP) Pulse Ox O2 Delivery O2 Flow Rate FiO2 04/13/18 21:13 98.4 72 18 133/72 (92) 100 Orders Orders Ed Urine Pregnancytest Poc (04/13/18 23:04) [facility] Medical Decision Making Medical Screen Exam Complete: Yes Emergency Medical Condition: Yes Interpretation(s) Vital Signs Date Time Temp Pulse Resp B/P (MAP) Pulse Ox O2 Delivery O2 Flow Rate FiO2 04/13/18 21:13 98.4 72 18 133/72 (92) 100 Differential Diagnosis versus dysfunctional uterine bleeding versus other Narrative Course Patient is a 28-year-old female presenting to emergency department for evaluation of vaginal bleeding after having an IUD placed over 2 weeks ago. Pelvic exam revealed 2 strings from the IUD protruding from cervix, there was no cervical motion tenderness on exam. There is no significant amount of blood in the vaginal vault. Patient was encouraged to follow-up with women's care in our clinic which is to place the IUD. She was encouraged to take ibuprofen as needed and as directed for pain or cramping. She was further encouraged return to emergency department for any new worsening symptoms. Patient stable for discharge. Diagnosis Primary Impression: Dysfunctional uterine bleeding Referrals: [facility] 3 days Patient Instructions: Dysfunctional Uterine Bleeding (ED), General Instructions Additional Instructions: Follow-up with the women's care now clinic Take ibuprofen as needed and as directed for pain or cramping Return to emergency department for any new or worsening symptoms Med/Other Pt SpecificInfo: Prescription(s) given Scripts Ibuprofen (Ibuprofen) 800 Mg Tab 800 MG PO Q6HR Y for PAIN, #40 TAB 0 Refills Prov: Hilda Casiano 04/14/18 Disposition: 01 DISCHARGE HOME Condition: Stable Hilda Casiano April 14, 2018 00:01
== END 2018-04-14 00:39 | disposition home or self-care (01) ==
LOC: NEPD 20:52
DX: N93.8 Other specified abnormal uterine and vaginal bleeding (principal); Z97.5 Presence of (intrauterine) contraceptive device
CPT/HCPCS: 84703; 99283